=== PATIENT | female | born 1945 | race Caucasian/White ===

== ENCOUNTER 2021-03-13 11:22 | Outpatient (REF) | payer MEDICARE, OTHER, SELFPAY | END 2021-03-13 11:23 | disposition home or self-care (01) | LOC: HO.HMGCLDS 11:22 | PROVIDERS: PCP Internal Medicine; Visit Provider Internal Medicine | DX: Z20.822 Contact with and (suspected) exposure to COVID-19 (principal) | CPT/HCPCS: U0003; U0005 ==

== ENCOUNTER 2021-03-20 11:56 | Outpatient (REF) | payer MEDICARE, OTHER, SELFPAY | END 2021-03-20 11:57 | disposition home or self-care (01) | LOC: HO.HMGCLDS 11:56 | PROVIDERS: PCP Internal Medicine; Visit Provider Internal Medicine | DX: Z20.822 Contact with and (suspected) exposure to COVID-19 (principal) | CPT/HCPCS: C9803; U0003; U0005 ==

== ENCOUNTER 2021-03-30 13:50 | Outpatient (REF) | payer MEDICARE, OTHER, SELFPAY | END 2021-03-30 13:51 | disposition home or self-care (01) | LOC: HO.HMGCLDS 13:50 | PROVIDERS: PCP Internal Medicine; Visit Provider Internal Medicine | DX: Z20.822 Contact with and (suspected) exposure to COVID-19 (principal) | CPT/HCPCS: C9803; U0003; U0005 ==

== ENCOUNTER 2021-05-05 11:07 | Outpatient (REF) | payer MEDICARE, OTHER, SELFPAY | END 2021-05-05 11:08 | disposition home or self-care (01) | LOC: HO.HMGCLDS 11:07 | PROVIDERS: Visit Provider Internal Medicine | DX: Z20.822 Contact with and (suspected) exposure to COVID-19 (principal) | CPT/HCPCS: C9803; U0003; U0005 ==